=== PATIENT | male | born 1965 | race Caucasian/White ===

== ENCOUNTER 2024-04-25 06:28 | Day surgery (SDC) | payer OTHER, SELFPAY ==
[2024-04-18 13:39] VITALS: BMI 29.3
[2024-04-25] VITALS (7 sets, daily range): BP systolic 120–163; BP diastolic 69–95; BMI 29.3
--- NOTE | 2024-04-25 10:24 | W.SUR.PREOP ---
Pre-Operative Surgical Note
-
I have examined this patient prior to the performance of the scheduled procedure.
The patient's condition is unchanged from the time of the current History and
Physical and the patient is able to undergo the scheduled procedure.
[2024-04-25] MEDS: TYLENOL 1000 MG PO (10:25)
--- NOTE | 2024-04-25 12:50 | W.IMMPOSTOP ---
Surgical Immed Post Op Note
-
Primary Surgeon: Yesenia
Assisting Surgeon: Valencia Camara PA-C
Pre-op Diagnosis: Umbilical hernia; left inguinal hernia
Post-op Diagnosis: Umbilical hernia, 1 cm
Left inguinal hernia, indirect
Procedure Performed: Open primary umbilical herniorrhaphy
Robotic assisted laparoscopic WENDY repair left inguinal hernia with mesh; 3D max large mid weight
Anesthesia Type: GETA + 0.25% Marcaine
Specimen / Cultures: None
Estimated Blood Loss: 6 mL
Complications: None immediate
Operative Findings: Umbilical hernia, fascial defect 1 cm. Preperitoneal fat. Closed primarily with 2 buried [id number] 0 PDS stitches.
Robotic left inguinal herniorrhaphy. Left indirect inguinal hernia. No lipoma of cord structures. Left direct and femoral spaces normal. 3D max large mid weight mesh repair secured to Byron's ligament with 2-0 Vicryl x 2. Peritoneal flap
closed with 2-0 Monocryl STRATAFIX spiral. No incidental findings.
The assistance of Valencia Camara PA-C was required due to the complexity of the procedure. During the procedure Valencia Camara PA-C assisted with port placement, robotic instrumentation and suture material exchanges, and closure of the surgical incision
sites. I was present for the entirety of the operative procedure.
--- NOTE | 2024-04-25 13:02 | OR.RPT ---
Operative Report
Operative Report
Date of operative procedure: 04/25/2024
Primary Surgeon: Nickolas Patterson MD
Assisting Surgeon: Valencia Camara PA-C
Pre-op Diagnosis: Umbilical hernia
Left inguinal hernia
Post-op Diagnosis: Umbilical hernia, 1 cm
Left inguinal hernia, indirect
Procedure Performed: Open primary umbilical herniorrhaphy
Robotic assisted laparoscopic WENDY repair left inguinal hernia with mesh; 3D max large mid weight
Anesthesia Type: GETA +0.25% Marcaine
Specimen / Cultures: None/none
Estimated Blood Loss: 6mL
Complications: None immediate
Indications for operative procedure: Patient is a 59-year-old male recently seen in outpatient surgical evaluation secondary to left inguinal swelling. Physical examination confirmed the presence of a left inguinal hernia which was reducible as
well as an incidental umbilical hernia. I reviewed with patient treatment options he wished to pursue operative correction of his inguinal hernia. We discussed the option of simultaneous umbilical herniorrhaphy which he was comfortable with as
well. The anticipated operative surgery procedure of robotic assisted laparoscopic left inguinal herniorrhaphy and open umbilical herniorrhaphy was reviewed in detail with the patient preoperatively obtaining written informed consent. Please see
office visit consult note for full details.
Brief summary of operative Findings: Umbilical hernia, fascial defect 1 cm. Preperitoneal fat. Closed primarily with 2 buried [id number] 0 PDS stitches.
Robotic WENDY left inguinal herniorrhaphy. Left indirect inguinal hernia. No lipoma of cord structures. Left direct and femoral spaces normal. 3D max large mid weight mesh repair secured to Byron's ligament with 2-0 Vicryl x 2. Peritoneal flap
closed with 2-0 Monocryl STRATAFIX spiral. No incidental findings.
Operation detail: The patient was identified in the preoperative holding area. I confirmed the surgical sites and inguinal side with the patient preoperatively which was then marked and initialed by myself. He was interviewed by the anesthesia and
nursing staff then brought back to the operating room. The patient was placed on the operating table in supine position. The bilateral upper extremities were carefully padded and tucked at the side utilizing the arm guard positioning system.
Pneumatic compression boots were on the bilateral lower extremities. Following induction of general endotracheal anesthesia the patient was administered Ancef 2 g IV for prophylactic antibiotic coverage. The patient's anterior abdominal wall was
now widely and sterilely prepped with ChloraPrep and then draped in the usual manner. The surgical timeout was completed and the procedure was confirmed.
I initially proceeded anesthetizing the skin and subcutaneous tissues around the umbilicus. A horizontal incision was made with a 15 blade superior to the umbilical stalk immediately adjacent to the palpable hernia. Hernia sac was carefully freed
from the subcutaneous tissues utilizing blunt as well as sharp Metzenbaum scissor dissection. The umbilical dermis was freed from the hernia sac and contents as well carefully to preserve the associated blood supply. The fascial defect was now
cleaned circumferentially. The preperitoneal fat was reduced and away from the fascial attachments. There is a single fascial defect measuring about 1 cm in maximal length. I then closed the umbilical hernia defect primarily with 2
separate buried interrupted [id number] 0 PDS stitches. The umbilical dermis was tacked down to the fascia with 2 interrupted 3-0 Vicryl suture. Skin was closed with buried erupted 4 Monocryl in the dermis.
Next I proceeded with Veress needle insufflation in the left subcostal midclavicular line location. Once insufflated to 12 mmHg pressure then a left midclavicular line 8 mm trocar was then placed. The robotic scope was inserted, there was no
evidence of iatrogenic injury from access. The Veress needle was withdrawn. An epigastric 8 mm trocar was placed just to the left of the midline. A right midclavicular line 8 mm trocar was placed. The patient was then transition into
Trendelenburg to expose the inguinal/pelvic space and the robot was docked.
At the surgeon console inspection of the pelvis confirmed the presence of a left indirect inguinal hernia. There were no additional incidental intra-abdominal findings.
I initially began with creation of a peritoneal flap at the level of the left ASIS to the left medial umbilical ligament. The preperitoneal plane was now established along the length of the flap and developed inferiorly down to the inguinal space.
The medial dissection proceeded until the notch of the pubic symphysis was exposed at the midline followed by Byron's ligament on the left side. Byron's ligament was now cleared through the direct and femoral space; both of which were normal.
The underside of Byron's ligament was exposed as well. The peritoneal flap was now mobilized laterally down to the internal ring. The hernia sac was then grasped and begun to be reduced out of the inguinal canal from an anterior lateral to
anterior medial approach. I carefully continued to reduce the hernia sac off of the cremasteric fibers and cord contents all the way to the apex of the hernia sac. Next the hernia sac was now reduced off of its posterior attachments with
identification of the vas and the spermatic cord vessels. The hernia sac dissection continued back proximally past the turn in the left vas deferens and then overlying the left iliac space to meet up with the medial dissection. The posterior
dissection continued until there was wide separation between the vas and the spermatic cord vessels. The dissection continued posterior laterally for full exposure of the myopectineal orifice. The indirect space was further evaluated and there was
no lipomatous protrusion of the inguinal canal or associated with the cord structures.
With the myopectineal orifice now completely exposed hemostasis was confirmed. A 3D max large mid weight mesh was utilized for repair. The mesh was positioned parallel to the ileopubic tract. It was secured at 2 separate locations inferior
medially on Byron's ligament with 2 simple interrupted 2-0 Vicryl sutures. The patient was now begun to be taken out of Trendelenburg to confirm that the posterior aspect of the mesh was lying flat and that there was no shelling or undermining of
the mesh by the peritoneal edge. The peritoneal flap was now closed with a 2-0 Monocryl STRATAFIX spiral suture with a running Rich[place] type stitch.
A flexible suction catheter was placed through an 8 mm trocar and introduced into the peritoneal flap to evacuate the air out of the preperitoneal space. This again confirmed good positioning of the inguinal hernia mesh. There was no shelling or
folding of the mesh and no undermining and mesh by the peritoneal edge. The peritoneal covering of the mesh was completely intact.
At this point the robot was undocked. All sponge instrument and needle counts were confirmed to be correct x 2. The CO2 insufflation was now carefully evacuated out of the abdominal cavity. The trocar sites were removed as well as the flexible
suction catheter. Skin was closed with 4-0 Monocryl. Sterile surgical glue dressings were applied. The patient tolerated the procedure well and was transferred to the recovery unit for routine postoperative monitoring.
The assistance of Valencia Camara PA-C was required due to complexity of surgery. During the procedure Valencia Camara PA-C assisted with port placement, robotic instrumentation and suture material exchanges as well as closure of the surgical sites. I
was present for the entirety of the operative procedure.
== END 2024-04-25 14:37 | disposition home or self-care (01) ==
LOC: SDS 06:28
PROVIDERS: ATTENDING PHYSICIAN Surgery; FAMILY PHYSICIAN Family Medicine
DX: K40.90 Unilateral inguinal hernia, without obstruction or gangrene, not specified as recurrent (principal); K42.9 Umbilical hernia without obstruction or gangrene
CPT/HCPCS: 49650; 49591; 36415; 93005; C1781